=== PATIENT | male | born 1985 | race African-American/Black ===

== ENCOUNTER 2017-06-09 05:57 | Emergency (ER) | payer OTHER ==
[~2017-06-09] VITALS: Ht 190.5 cm; Wt 99.8 kg
[2017-06-09] MEDS ORDERED: NKM (06:05)
[2017-06-09 06:06] VITALS: BP_SYST 133; BP_SYST 73; BP_DIAS 86
[2017-06-09] MEDS ORDERED: IBUPROFEN600 MG ORAL (06:20)
--- NOTE | 2017-06-09 06:20 | Emergency Room Report ---
History of Present Illness General Chief Complaint: Upper Extremity Injury Source: Patient Present Illness HPI Is a 31-year-old male is right-handed. He presents with right elbow/proximal forearm pain. Onset was acute. He had injured his wrist about a month ago. He was tender with movement. He said he got better but tonight when he was moving his wrist he felt a sharp pain to the proximal elbow/forearm area. He thought he may have broken it. No trauma. No fever chills no nausea no vomiting. Allergies: Coded Allergies: No Known Allergies (Unverified , 06/09/17) Patient History Past Medical History: see triage record, old chart reviewed Past Surgical History: none Pertinent Family History: none Social History: Denies: smoking Immunizations: other Reviewed Nursing Documentation: PMH: Agreed, PSxH: Agreed Nursing Documentation-PM Past Medical History: No Stated History Review of Systems Eye: Denies: eye pain, blurred vision ENT: Denies: ear pain, nose congestion, throat swelling Respiratory: Denies: cough, shortness of breath Cardiovascular: Denies: chest pain, palpitations Gastrointestinal: Denies: abdominal pain, diarrhea, nausea, vomiting Musculoskeletal: Reports: muscle pain, Denies: back pain, joint pain Skin: Denies: rash Neurological: Denies: headache, numbness Endocrine: Denies: increased thirst, increased urine Hematologic/Lymphatic: Denies: easy bruising All Other Systems: negative except mentioned in HPI Physical Exam Vital Signs Date Time Temp Pulse Resp B/P (MAP) Pulse Ox O2 Delivery O2 Flow Rate FiO2 06/09/17 05:58 97.3 48 18 73/ 100 vitals normal Sp02 EP Interpretation: reviewed, normal General Appearance: well appearing, no apparent distress, alert Head: normocephalic, atraumatic Eyes: bilateral eye PERRL, bilateral eye EOMI ENT: hearing grossly normal, normal pharynx Neck: full range of motion, supple, no meningismus Respiratory: chest non-tender, lungs clear, normal breath sounds Cardiovascular #1: regular rate, rhythm, no murmur Gastrointestinal: normal bowel sounds, non tender, no mass, no organomegaly, no bruit, non-distended Musculoskeletal: back normal, gait/station normal, normal range of motion, tender - Tenderness over the radial aspect of the brachial radialis muscle proximally. Full range of motion the elbow. Sensation normal. No deficit. Psychiatric: mood/affect normal Skin: warm/dry Medical Decision Making ER Course Patient presents with elbow/forearm injury. Site of pain is over the brachioradialis muscle proximally. No fracture or dislocation. Other X-Ray Diagnostic Results Other X-Ray Diagnostic Results : X-Ray ordered: Right elbow # of Views/Limited Vs Complete: 4 View Indication: Pain EP Interpretation: Yes Interpretation: no dislocation, no soft tissue swelling, no fractures Impression: No acute disease Electronically Signed by: Magno Colunga MD Last Vital Signs Date Time Temp Pulse Resp B/P (MAP) Pulse Ox O2 Delivery O2 Flow Rate FiO2 06/09/17 06:06 97.3 49 18 73/ 100 Status: improved Disposition: HOME, SELF-CARE Condition: Stable Scripts Ibuprofen* (MOTRIN*) 600 Mg Tablet 600 MG ORAL Q8H Y for For Pain, #30 TAB 0 Refills Prov: MAGNO COLUNGA M.D. 06/09/17 Additional Instructions: Followup with your DrSee in 7 days. Not better in a week or 2, he may need an MRI. Return if symptom worsen. MGANO COLUNGA M.D. Jun 09, 2017 06:20
[2017-06-09 06:29] VITALS: BP 110/64
--- NOTE | 2017-06-09 10:05 | Diagnostic Imaging Report ---
Indication: Right elbow pain Technique: 3 views of the right elbow Comparison: none Findings: No acute fractures. No dislocations. No joint effusion. Joint spaces are preserved. Normal mineralization. No radiopaque foreign body. Impression: Negative
== END 2017-06-09 06:32 | disposition home or self-care (01) ==
LOC: EMR 06:17
DX: M79.632 Pain in left forearm (principal); M25.522 Pain in left elbow
CPT/HCPCS: 99283